=== PATIENT | male | born 1980 | race Caucasian/White ===

== ENCOUNTER 2016-03-19 15:52 | Emergency (ER) | payer SELFPAY ==
[~2016-03-19] VITALS: Ht 172.7 cm; Wt 68.0 kg
[~2016-03-19 15:52] MED LIST: AMOX875T PO
--- NOTE | 2016-03-19 17:01 | RAD ---
Indication head injury. Closed head injury. Suspect bleed. Noncontrast images of the head were obtained. Note is made of a previous examination 12/17/2015. The calvarium appears unremarkable. The visualized paranasal sinuses appear normal. There is some diminished aeration of right mastoid air cells similar to the previous exam. There is no subdural or epidural hematoma. No mass or midline shift is seen. There is no hemorrhage. Acute finding is not apparent. IMPRESSION: No acute finding seen on noncontrast CT images of the head PQRS Compliance Statement: One or more of the following individualized dose reduction techniques were utilized for this examination: 1. Automated exposure control 2. Adjustment of the mA and/or kV according to patient size 3. Use of iterative reconstruction technique
--- NOTE | 2016-03-19 17:21 | PHYS DOC ---
Past Medical History Past Medical History: Hepatitis, Unknown Additional Past Medical Histor: HEPATITIS C, HEMOPHILIA Past Surgical History: Appendectomy, Other Additional Past Surgical Histo: teeth, spleen, portacath Alcohol Use: Occasionally Drug Use: None Adult General Chief Complaint Chief Complaint: HEAD INJURY/TRAUMA [facility] HPI Patient is a 36 year old male who presents with complaint of head injury. Patient states that this took place prior to arrival. Patient states that he was checking underneath his car and states that the macario came down and struck him on top of his head. The patient denied any loss of consciousness though he does state that he has had some headache and mild wooziness. The patient states that he did not know that he had a laceration to his scalp until he went into the gas station where he was checking his car and tested top of his head. Patient noticed blood on his hand. The patient came to the emergency department for evaluation. Patient has history of hemophilia and history of hepatitis C. Patient states that he has not currently having any changes in vision, difficulty with speech or swallowing, unilateral weakness. Review of Systems Review of Systems Constitutional: Denies fever or chills [] Eyes: Denies change in visual acuity, redness, or eye pain [] HENT: Head injury, scalp laceration, Denies nasal congestion or sore throat [] Respiratory: Denies cough or shortness of breath [] Cardiovascular: No additional information not addressed in HPI [] GI: Denies abdominal pain, nausea, vomiting, bloody stools or diarrhea [] : Denies dysuria or hematuria [] Musculoskeletal: Denies back pain or joint pain [] Integument: Denies rash or skin lesions [] Neurologic: Headache now, focal weakness or sensory changes [] Endocrine: Denies polyuria or polydipsia [] Allergies Allergies Allergies Coded Allergies Type Severity Reaction Last Updated Verified NSAIDS (Non-Steroidal Anti-Inflamma Adverse Reaction Intermediate 11/20/15 Yes aspirin Adverse Reaction Intermediate 11/20/15 Yes Physical Exam Physical Exam Constitutional: Well developed, well nourished, no acute distress, non-toxic appearance. [] HENT: Normocephalic, atraumatic, bilateral external ears normal, oropharynx moist, no oral exudates, nose normal. [] Eyes: PERRLA, EOMI, conjunctiva normal, no discharge. [] Neck: Normal range of motion, no tenderness, supple, no stridor. [] Cardiovascular:Heart rate regular rhythm, no murmur [] Lungs & Thorax: Bilateral breath sounds clear to auscultation [] Abdomen: Bowel sounds normal, soft, no tenderness, no masses, no pulsatile masses. [] Skin: Warm, dry, no erythema, no rash. [] Back: No tenderness, no CVA tenderness. [] Extremities: No tenderness, no cyanosis, no clubbing, ROM intact, no edema. [] Neurologic: Alert and oriented X 3, normal motor function, normal sensory function, no focal deficits noted. [] Psychologic: Affect normal, judgement normal, mood normal. [] Current Patient Data Vital Signs Vital Signs Date Time Temp Pulse Resp B/P Pulse Ox O2 Delivery O2 Flow Rate FiO2 03/19/16 18:22 64 18 121/78 98 Room Air 03/19/16 15:55 97.4 97.4 EKG EKG Not performed [] Radiology/Procedures Radiology/Procedures [facility] [address] [place] [address] IMAGING REPORT Signed PATIENT: GEOFF FORTUNE ACCOUNT: [id number] : 1980 LOCATION: ER AGE: 36 SEX: M EXAM STATUS: REG ER ORD. PHYSICIAN: YENI MICHEL MD REASON: head injury, history of hemophilia PROCEDURE: HEAD WO CONTRAST Indication head injury. Closed head injury. Suspect bleed. Noncontrast images of the head were obtained. Note is made of a previous examination 12/17/2015. The calvarium appears unremarkable. The visualized paranasal sinuses appear normal. There is some diminished aeration of right mastoid air cells similar to the previous exam. There is no subdural or epidural hematoma. No mass or midline shift is seen. There is no hemorrhage. Acute finding is not apparent. IMPRESSION: No acute finding seen on noncontrast CT images of the head PQRS Compliance Statement: One or more of the following individualized dose reduction techniques were utilized for this examination: 1. Automated exposure control 2. Adjustment of the mA and/or kV according to patient size 3. Use of iterative reconstruction technique DICTATED and SIGNED BY: SHERRI KWAN MD DATE: 03/19/16 0351 CC: YENI MICHEL MD; NO PCP ~ [] Course & Med Decision Making Course & Med Decision Making Pertinent Labs and Imaging studies reviewed. (See chart for details) Patient's head CT was negative. The patient had continued drainage from his wound on his scalp, thus this was closed with a skin staple as outlined in the procedure note. 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 Advised patient to return to emergency department for any worsening symptoms. Dragon Disclaimer Dragon Disclaimer This electronic medical record was generated, in whole or in part, using a voice recognition dictation system. Laceration Repair Lac Repair Indication: Scalp laceration Procedure: The patient was placed in the appropriate and the area was then with normal saline. The laceration was closed with one skin staple. Total repaired wound length: 0.5 cm Other Items: Stable count: 1 The patient tolerated the procedure without difficulty. Complications: None. Departure Departure Impression: Primary Impression: Closed head injury Additional Impressions: Scalp laceration Hemophilia Disposition: HOME, SELF-CARE Condition: IMPROVED Referrals: NO PCP (PCP) Patient Instructions: Head Injury, Adult, Laceration Care, Adult, Staple Care and Removal Additional Instructions: Follow-up with your primary doctor in the next 5-7 days for removal of your scalp staple. Return to the emergency department for any worsening symptoms including severe headache, loss of vision, difficulty with speech or swallowing , unilateral weakness, or any other worsening symptoms. Problem Qualifiers Primary Impression: Closed head injury Encounter type: initial encounter Qualified Code: S09.90XA - Unspecified injury of head, initial encounter Additional Impressions: Scalp laceration Encounter type: initial encounter Qualified Code: S01.01XA - Laceration without foreign body of scalp, initial encounter YENI MICHEL MD Mar 19, 2016 17:21
[2016-03-19 18:22] VITALS: BP 121/78
== END 2016-03-19 18:16 | disposition home or self-care (01) ==
LOC: ER 15:52
DX: S01.01XA Laceration without foreign body of scalp, initial encounter (principal); D66 Hereditary factor VIII deficiency; Z88.6 Allergy status to analgesic agent; W22.8XXA Striking against or struck by other objects, initial encounter; Y93.89 Activity, other specified; Y92.89 Other specified places as the place of occurrence of the external cause; Y99.8 Other external cause status
CPT/HCPCS: 12001; 70450; 99284-25

== ENCOUNTER 2017-10-05 02:27 | Emergency (ER) | payer SELFPAY ==
[2017-10-05 03:39] LABS: ADD MAN DIFF? NO
[2017-10-05 03:42] LABS: BASO # 0.1 x10^3/uL (0.0-0.2); BASO % 1 % (0-3); EOS # 0.1 x10^3/uL (0.0-0.7); EOS % 1 % (0-3); HEMOGLOBIN 15.5 g/dL (13.0-17.5); LYMPH # 1.8 x10^3/uL (1.0-4.8); LYMPH % 14 % (24-48); MEAN CORPUSCULAR HEMOGLOBIN 33 pg (25-35); MEAN CORPUSCULAR HGB CONC 34 g/dL (31-37); MEAN CORPUSCULAR VOLUME 95 fL (79-100); MONO # 0.7 x10^3/uL (0.0-1.1); MONO % 6 % (0-9); NEUT % 79 % (31-73); PLATELET COUNT 342 x10^3/uL (140-400); RED BLOOD COUNT 4.74 x10^6/uL (4.30-5.70); RED CELL DISTRIBUTION WIDTH 13.7 % (11.5-14.5); WHITE BLOOD COUNT 12.7 x10^3/uL (4.0-11.0)
[2017-10-05 04:13] LABS: ANION GAP 12 (6-14); BLOOD UREA NITROGEN 10 mg/dL (8-26); BUN/CREATININE RATIO 13 (6-20); CALCIUM 8.4 mg/dL (8.5-10.1); CARBON DIOXIDE 25 mmol/L (21-32); CHLORIDE 106 mmol/L (98-107); CREATININE 0.8 mg/dL (0.7-1.3); GLUCOSE 95 mg/dL (70-99); POTASSIUM 3.8 mmol/L (3.5-5.1); SODIUM 143 mmol/L (136-145)
[2017-10-05 04:18] LABS: ALBUMIN 3.9 g/dL (3.4-5.0); ALBUMIN/GLOBULIN RATIO 1.2 (1.0-1.7); ALK PHOS 85 U/L (46-116); ALT (SGPT) 20 U/L (16-63); AST (SGOT) 15 U/L (15-37); MAGNESIUM 1.9 mg/dL (1.8-2.4); TOTAL BILIRUBIN 0.5 mg/dL (0.2-1.0); TOTAL PROTEIN 7.2 g/dL (6.4-8.2)
[2017-10-05 04:22] LABS: ETHANOL 125 mg/dL (0-10); TROPONINI < 0.017 ng/mL (0.000-0.055)
[2017-10-05] MEDS: fentaNYL PF VIAL 100 MCG/2 ML VIAL IV (04:25)
[2017-10-05] MEDS: LIDOCAINE 2%/EPI 1:100,000 20 ML VIAL. IJ (04:26)
[2017-10-05 04:27] LABS: CKMB INDEX 0.6 % (0-4); CKMB MASS 0.6 ng/mL (0.0-3.6); CREATINE KINASE 95 U/L (39-308)
[2017-10-05 04:30] LABS: AMPHETAMINE/METHAMPHETAMINE NEG (NEG); BARBITURATES NEG (NEG); BENZODIAZEPINES NEG (NEG); CANNABINOIDS NEG (NEG); COCAINE NEG (NEG); ETHANOL, URINE POS (NEG); METHADONE NEG (NEG); OPIATES NEG (NEG); PHENCYCLIDINE NEG (NEG)
[2017-10-05] MEDS ORDERED: NEOMY/BACITR/POLYMYXIN OINT PACKET. TP (05:01)
[2017-10-05] MEDS: NEOMY/BACITR/POLYMYXIN OINT PACKET. TP (05:04)
== END 2017-10-05 05:05 | disposition home or self-care (01) ==
LOC: ER 02:27
DX: S01.01XA Laceration without foreign body of scalp, initial encounter (principal); F10.129 Alcohol abuse with intoxication, unspecified; Z88.8 Allergy status to other drugs, medicaments and biological substances; Z88.6 Allergy status to analgesic agent; X58.XXXA Exposure to other specified factors, initial encounter; Y93.89 Activity, other specified; Y92.89 Other specified places as the place of occurrence of the external cause; Y99.8 Other external cause status
CPT/HCPCS: 12002; 36415; 70450; 72125; 80053; 80307; 82553; 83735; 84484; 85025; 93005; 96374; 99285-25; G0480; J3010; J3490